=== PATIENT | female | born 1985 | race Asian ===

== ENCOUNTER 2019-10-21 11:41 | Inpatient (IN) ==
[2019-10-21] MEDS ORDERED: OXYTOCIN/DEXTROSE 5%-WATER 30 UNITS/500 ML BAG IV ONE (12:21)
[2019-10-21] MEDS ORDERED: RINGER'S SOLUTION,LACTATED 1,000 ML IV ONE (12:21)
[2019-10-21] MEDS ORDERED: ONDANSETRON 4 MG TAB.RAPDIS PO PRN (12:21)
[2019-10-21] MEDS: DEXTROSE 5%-LACTATED RINGERS 1,000 ML IV PRN ×3 (12:40→16:30)
--- NOTE | 2019-10-21 13:04 | HP ---
Chief Complaint - Chief Complaint Date of Service: 10/21/19 Time of Service: 12:44 Chief Complaint: My water broke History of Present Illness: 33 yo at 39 3/7 weeks presents to L&D complaining of SROM at 1030 this am. Patient has been getting her PNC at [facility] and was in the process of transferring here when her water broke this am. She does not feel her contractions, denies vaginal bleeding, decreased FM, abdominal pain, trauma, N/V/F/C. This complicated by mild anemia. Rh positive Rubella immune GBS negative Medical History (Last Reviewed 10/21/19 @ 12:52 by Michael Christianson DO) Ulcer Review Of Systems (GEN) - Review of Systems Generalized/Overall Review: Present: No Symptoms Reported EENTM: Present: No Symptoms Reported Respiratory: Present: No Symptoms Reported Cardiac: Present: No Symptoms Reported Abdominal: Present: No Symptoms Reported Genitourinary: Present: Other - LOF - clear, 1030am Musculoskeletal: Present: No Symptoms Reported Neurological: Present: No Symptoms Reported Skin: Present: No Symptoms Reported Endocrine: Present: No Symptoms Reported Allergies/Adverse Reactions: Allergies Allergy/AdvReac Type Severity Reaction Status Date / Time No Known Allergies Allergy Unverified 10/21/19 12:07 Home Medications: HOME MEDICATIONS Ferrous Sulfate [Iron] 325 mg PO DAILY 10/21/19 [Last Taken 10/20/19 14:00] Vits96/Iron Fum/Folic [ S] 1 tab PO DAILY 10/21/19 [Last Taken 10/20/19 14:00] Exam - Exam Vital Signs: Vital Signs - Last Taken Temp 36.6 C 10/21/19 12:39 Pulse 91 10/21/19 12:39 Resp 18 10/21/19 12:39 BP 99/59 10/21/19 12:39 Pulse Ox 97 10/21/19 12:39 Constitutional: Present: Alert, Oriented x3, Acute distress ENT Exam: Present: hearing grossly normal Neck: Present: non-tender. Absent: thyromegaly Breasts: Present: Exam deferred Respiratory: Present: lungs clear, no respiratory distress Cardiovascular/Chest: Present: normal peripheral pulses, regular rate, rhythm, no edema Abdomen: Present: soft, no rebound tenderness, other - gravid. Absent: tender /Rectal: Present: Other - 1-2/75/-2, gross ROM with clear fluid Skin Exam: Present: normal color, warm/dry, no cyanosis Lymphatic: Present: no adenopathy Neurologic: Present: alert, normal mood/affect Appearance: Present: appropriate appearance, appropriate insight Eye contact: Present: cooperative, good eye contact Thoughts: Present: normal thought pattern, normal mood /affect Assessment/Plan - Assessment/Plan (1) SROM (spontaneous rupture of membranes) Assessment: Admit to L&D. IV D5LR bolus. NPO until reassuring tracing. Pitocin and Epidural PRN. CBC. Problem: Acute (2) Anemia Problem: Acute Qualifiers: Anemia type: iron deficiency Iron deficiency anemia type: inadequate dietary iron intake Qualified Code(s): D50.8 - Other iron deficiency anemias Non Stress Test - Status NST: 10/21/19 Reason for NST: other - SROM Monitor Mode: External Acceleration: Present Decelerations: None Variability: Minimal - Undetectable to <= 5 bpm Activity: non-reactive - Assessment NST Assessment: other - SROM with non-reactive NST., threatened labor - contractions q 6-7 min Minutes on NST: 40 - Plan NST Plan: Admit to L&D, Other - Since pt hasn't eaten anything this am, will give IV D5LR bolus to see if tracing improves.
[2019-10-21 13:18] LABS: Hematocrit 31.7 % (37.0-47.0); Hemoglobin 10.4 gm/dL (12.5-16.0); Mean Cell Volume 98.1 fl (78-100); Mean Corpuscular Hemoglobin 32.2 pg (27-31); Mean Corpuscular Hgb Conc 32.8 g/dl (32-36); Mean Platelet Volume 9.6 fl (8-12.5); Neutrophil # 4.4 K/mm3 (1.3-6.0); Neutrophil % 74.6 % (42-75.0); Platelet Count 196 K/mm3 (150-450); Red Blood Count 3.23 M/mm3 (4.2-5.4); Red Cell Distribution Width 13.1 % (11.5-14.0); White Blood Count 5.9 K/mm3 (4.0-10.5)
[2019-10-21 14:00] LABS: Cocaine Ur Negative (NEGATIVE); Urine Barbiturate Negative (NEGATIVE); Urine Benzodiazepines Negative (NEGATIVE); Urine Opiates Negative (NEGATIVE); Urine PCP Negative (NEGATIVE); Urine THC Negative (NEGATIVE)
[2019-10-21] MEDS ORDERED: CALCIUM CARBONATE 500 MG TAB.CHEW PO PRN (16:40)
--- NOTE | 2019-10-21 18:44 | PN ---
Progess Note - Interim Date: 10/21/19 Time: 18:39 Narrative: 10/21/19 18:39 Patient becoming more uncomfortable with contractions Vital signs stable. Pitocin at 1 mu/min. FHT: 145 baseline, minimum with periods of moderate variability, good accelerations, no decelerations. Contractions q 2-3 min Cervix: 2/80/-2 at 1700 Impression: Intrauterine at 39-3/7 weeks with spontaneous rupture of membranes at 1030 this a.m. in early labor. Plan: Continue present plan
[2019-10-21] MEDS ORDERED: NALOXONE HCL 1 MG/1 ML SYRG IV PRN (19:39)
[2019-10-21] MEDS ORDERED: ONDANSETRON HCL/PF 2 MG/ML VIAL IV PRN (19:39)
[2019-10-21] MEDS ORDERED: BUPIVACAINE HCL/0.9 % NACL/PF 250 ML EP PRN (19:39)
[2019-10-21] MEDS ORDERED: fentaNYL CITRATE/PF 50 MCG/ML AMPUL IT SCH (19:45)
--- NOTE | 2019-10-21 20:34 | ANES ---
Post Anesthesia Discharge - Transfer of Care Transfer of Care handoff given to nurse: Yes - Anesthesia Post Op Note Anesthesia Post Op Note: Care transferred to OB RN
--- NOTE | 2019-10-21 20:34 | ANES ---
Anesthesia Pre Procedure Eval Vitals/Labs: Last Vital Signs Temp 36.6 C 10/21/19 12:39 Pulse 91 10/21/19 12:39 Resp 18 10/21/19 12:39 BP 99/59 10/21/19 12:39 Pulse Ox 97 10/21/19 12:39 HOME MEDICATIONS Ferrous Sulfate [Iron] 325 mg PO DAILY 10/21/19 [Last Taken 10/20/19 14:00] Vits96/Iron Fum/Folic [ S] 1 tab PO DAILY 10/21/19 [Last Taken 10/20/19 14:00] Allergies/Adverse Reactions: Allergies Allergy/AdvReac Type Severity Reaction Status Date / Time No Known Allergies Allergy Unverified 10/21/19 12:07 - Planned Procedure Planned Procedure: WATER BROKE Medication List Reviewed:: Yes Allergies Verified: Yes Medical History (Last Reviewed 10/21/19 @ 20:33 by Jorge Katz CRNA) Ulcer Surgical History (Last Reviewed 10/21/19 @ 20:33 by Jorge Katz CRNA) No pertinent past surgical history - Family Anesthesia History Family History:: no untoward family reactions to anesthesia - Airway/Neck/Teeth Within Normal Limits:: Yes Teeth Condition: intact Neck Exam: full range of motion Mallampatti Score: 1 Thyromental (T-M) distance: > 6 cm Mandibulo Hyoid distance: > 3 cm - Respiratory Respiratory Physical: lungs clear Smoking Status: Never smoker Sleep Apnea currently treated: No Sleep Apnea by current assessment: No - Cardiovascular Tolerate Activity: Good Heart Sounds: S1 & S2, Regular - Gastrointestinal NPO since: 1300 - Anesthesia Assessment and Plan ASA Class: PS, II, E Anesthesia Type Plan: Epidural Planned difficult intubation/equipment available: No
--- NOTE | 2019-10-21 20:35 | ANES ---
Post Anesthesia Assessment - Vital Signs Vitals: Last Vital Signs Temp 36.6 C 10/21/19 12:39 Pulse 91 10/21/19 12:39 Resp 18 10/21/19 12:39 BP 99/59 10/21/19 12:39 Pulse Ox 97 10/21/19 12:39 Airway Patency: Normal - Mental Status Level Of Consciousness: Awake - Pain Level Pain Score: 1 - N/V Assessment Nausea/Vomiting Presence: None Dehydration:: No
--- NOTE | 2019-10-21 20:37 | ANES ---
Anesthesia Procedure Note Procedure Note: ANESTHESIA PROCEDURE NOTE Date of Procedure: 10/21/19 Time of procedure: 2014. Performed by: Tc Katz CRNA Institutional Commodity Analyst: None. Preprocedure diagnosis: Active labor. Post procedure diagnosis: Same. Procedure: Insertion of labor epidural. Indications: The patient is a 33-year-old multigravida female in active labor requesting labor epidural for pain management. Findings: See below. Details of the procedure: The patient was placed in a sitting position. Back was prepped with DuraPrep. Patient was then draped in a sterile fashion. Lidocaine 1% was infiltrated to the skin and subcutaneous tissues at the level of the L3 4 interspace. The epidural space was identified using a 18-gauge Tuohy needle with [id number] technique. 20 mcg fentanyl was given intrathecally using a 27 ga. spinal needle. Epidural catheter was inserted without difficulty. Negative test dose was elicited using 5 mL of 1.5% preservative-free lidocaine plus epinephrine 1 200,000. The epidural catheter was then taped and secured in place. EBL: Minimal. Fluids: N/A. Specimen: N/A. Post procedure condition: The patient tolerated the procedure well. No complications were noted. Thank you for this consultation. Ramirez CRNA
--- NOTE | 2019-10-21 23:10 | PN ---
Progess Note - Interim Date: 10/21/19 Time: 22:49 Narrative: 10/21/19 22:49 Patient [comfortable with epidural] Vital signs stable. FHT: 140 baseline, minimum variability but periods of moderate variability with accelerations 10 beats above baseline every 15-20 minutes. Patient had few late decelerations following her epidural which have since resolved. Good acceleration with scalp stimulation. Contractions q 2-4 min Cervix: 2/80/0 Impression: Intrauterine at 39-3/7 weeks [in labor] Plan: Discussed minimum variability with patient earlier today. Explained to her and partner that seeing moderate variablity reassures us the baby is ok. But everything could still be ok even if we don't see it. Explained that some causes of minimal/absent variablitiy are: prexisiting neurologic injury, congenital anomalies, sleep cycle of baby, medications, extreme prematurity, or arrhythmias. Options of c/s vs continued labor discussed. Recommended continuing with labor as long as there are no repetitive late or variable decelerations. They agree.
[2019-10-22] MEDS ORDERED: ceFAZolin SODIUM 1 GM VIAL IV PRN (06:00)
[2019-10-22] MEDS ORDERED: TERBUTALINE SULFATE 1 MG/ML VIAL ONE (06:14)
[2019-10-22] MEDS ORDERED: ceFAZolin SODIUM 1 GM VIAL ONE (06:31)
[2019-10-22] MEDS ORDERED: LIDOCAINE HCL/EPINEPHRINE 20 ML VIAL IJ ONE (06:36)
[2019-10-22] MEDS ORDERED: SODIUM BICARBONATE 1 MEQ/ML SYRG ONE (06:37)
[2019-10-22] MEDS ORDERED: OXYTOCIN 20 UNITS in RINGER'S SOLUTION,LACTATED 1,000 ML IV ONE (06:40)
[2019-10-22] MEDS ORDERED: ONDANSETRON HCL/PF 2 MG/ML VIAL ONE (07:05)
[2019-10-22] MEDS ORDERED: fentaNYL CITRATE/PF 50 MCG/ML AMPUL ONE ×2 (07:05→08:06)
[2019-10-22] MEDS ORDERED: KETOROLAC TROMETHAMINE 30 MG/ML VIAL ONE (08:06)
[2019-10-22] MEDS ORDERED: ONDANSETRON HCL/PF 2 MG/ML VIAL IV PRN (08:07)
[2019-10-22] MEDS ORDERED: SENNOSIDES 8.6 MG TABLET PO PRN (08:07)
[2019-10-22] MEDS ORDERED: GLYCERIN/WITCH HAZEL LEAF 40 APPL BOX TP PRN (08:07)
[2019-10-22] MEDS ORDERED: SIMETHICONE 80 MG TAB.CHEW PO PRN (08:07)
[2019-10-22] MEDS ORDERED: BISACODYL 10 MG SUPP.RECT RC PRN (08:07)
--- NOTE | 2019-10-22 08:33 | ANES ---
Anesthesia Pre Procedure Eval Vitals/Labs: Last Vital Signs Temp 37.1 C 10/22/19 08:20 Pulse 82 10/22/19 08:20 Resp 19 10/22/19 08:20 BP 100/46 10/22/19 08:20 Pulse Ox 96 10/22/19 08:20 HOME MEDICATIONS Ferrous Sulfate [Iron] 325 mg PO DAILY 10/21/19 [Last Taken 10/20/19 14:00] Vits96/Iron Fum/Folic [ S] 1 tab PO DAILY 10/21/19 [Last Taken 10/20/19 14:00] Allergies/Adverse Reactions: Allergies Allergy/AdvReac Type Severity Reaction Status Date / Time No Known Allergies Allergy Unverified 10/21/19 12:07 - Planned Procedure Planned Procedure: Medication List Reviewed:: Yes Allergies Verified: Yes Medical History (Last Reviewed 10/22/19 @ 08:32 by Jorge Katz CRNA) Ulcer Surgical History (Last Reviewed 10/22/19 @ 08:32 by Jorge Katz CRNA) No pertinent past surgical history - Family Anesthesia History Family History:: no untoward family reactions to anesthesia - Airway/Neck/Teeth Within Normal Limits:: Yes Teeth Condition: intact Neck Exam: full range of motion Mallampatti Score: 2 Thyromental (T-M) distance: > 6 cm Mandibulo Hyoid distance: > 3 cm - Respiratory Respiratory Physical: lungs clear Smoking Status: Never smoker Sleep Apnea currently treated: No Sleep Apnea by current assessment: No - Cardiovascular Tolerate Activity: Good Heart Sounds: S1 & S2, Regular - Gastrointestinal NPO since: MN - Anesthesia Assessment and Plan ASA Class: PS, II, E Anesthesia Type Plan: Epidural Planned difficult intubation/equipment available: No
--- NOTE | 2019-10-22 08:33 | ANES ---
Post Anesthesia Assessment - Vital Signs Vitals: Last Vital Signs Temp 37.1 C 10/22/19 08:20 Pulse 82 10/22/19 08:20 Resp 19 10/22/19 08:20 BP 100/46 10/22/19 08:20 Pulse Ox 96 10/22/19 08:20 Airway Patency: Normal - Mental Status Level Of Consciousness: Awake - Pain Level Pain Score: 3 - N/V Assessment Nausea/Vomiting Presence: None Dehydration:: No
--- NOTE | 2019-10-22 08:33 | ANES ---
Post Anesthesia Discharge - Transfer of Care Transfer of Care handoff given to nurse: Yes - Discharge from PACU Discharge from PACU when meets criteria: Yes
--- NOTE | 2019-10-22 08:36 | OR ---
Operative Report - Dictated Report Narrative: Indication: 33-year-old 2 para 0 presents to labor and delivery with spontaneous rupture of membranes at 39-3/7 weeks. Upon admission tracing showed minimum to absent variability with rare acceleration. Over the course of the labor tracing would have episodes of moderate variability and accelerations. However, as labor progressed the patient began having more frequent episodes of late decelerations. With mild infrequent contractions tracing was okay, but as soon as contractions became stronger with/without Pitocin late decelerations reoccurred. For this reason patient underwent section. Patient and partner had been counseled extensively regarding section several times throughout labor and once again prior to beginning the section. Patient had progressed to 8 cm/0 station at the time of section. Status: Emergent called at 0622 downgraded to routine at 0632. Pre Operative Diagnosis: 39 4/7-week intrauterine . intolerance to labor. Prolonged premature rupture of membranes. Post Operative Diagnosis: Same. Short umbilical cord. Right foot cord. Procedure Preformed: Primary Low Transverse Section Surgeon: Jona Christianson DO Grinder Operator Tool: OR Staff Anesthesia: Epidural Estimated Blood Loss: 700 mL Urine Output: 100 mL Fluids Given: 1200 mL of crystalloid Drains: Lizama to gravity Surgical Complications: None Specimens: Placenta to pathology Findings: Male born at 0659 on 10/22/2019 with Apgars 9 and 9, weighing 2955 g in cephalic presentation. Normal uterus, tubes, ovaries. Generalized oozing from the lower uterine segment below incision. Cord gases: Arterial pH7.23, base excess -16.0 Venous pH 7.37, base excess - 1.7 Technique: The patient was taken to the operating room and placed in dorsal supine position with a left lateral tilt. After adequate epidural anesthesia, lizama catheter insertion,SCDs placed, and 2 g of Ancef given preoperatively, the abdominal cavity was entered via a modified Norris-Dickens incision. Two rolled laps were placed in the pericolic gutters on either side of the uterus. The bladder appeared to be high on the uterus coming to approximately mid fundus region. For this reason an incision was made through vesicouterine peritoneum, creating a bladder flap. A transverse incision was made in the lower uterine segment and extended laterally and upwardly with digital traction. Clear fluid was noted upon amniotomy. The infant was delivered easily. The cord was clamped and cut and infant was handed off to awaiting campus director. Cord gases were obtained. The placenta was allowed to deliver spontaneously. The uterus was cleared of clot and debris. Uterine incision was closed with 0 Vicryl using a running stitch. A second imbricating layer was placed. Generalized oozing was noted over the entire lower uterine segment. Attempts at controlling bleeding with cautery was unsuccessful. Therefore Aristastat was placed over the generalized oozing area providing excellent hemostasis. Rolled laps were removed from the abdominal cavitiy. The peritoneum was closed with a running 3- 0 Monocryl. The same suture was used to approximate the rectus and pyramidalis muscles. The fascia was closed with a running 0 Vicryl. The subcutaneous layer was closed with a running 3-0 Monocryl. The same suture was used to approximate the subdermal layer. The skin was closed with a running 4-0 Monocryl and Dermabond. Sponge, lap, needle, and instrument count were correct x 2. Disposition: The patient was transferred to post anesthesia care unit in good condition
[2019-10-22] MEDS: oxyCODONE HCL/ACETAMINOPHEN 1 TAB TABLET PO PRN ×5 (09:40→23:52)
[2019-10-22] MEDS: IBUPROFEN 800 MG TABLET PO PRN ×3 (09:41→23:52)
[2019-10-22] MEDS: DOCUSATE SODIUM 100 MG CAPSULE PO SCH ×2 (15:46→20:12)
[2019-10-22] MEDS: ENOXAPARIN SODIUM 40 MG/0.4 ML SYRG SC SCH (15:48)
[2019-10-23] MEDS: DOCUSATE SODIUM 100 MG CAPSULE PO SCH ×2 (08:36→20:51)
[2019-10-23] MEDS: IBUPROFEN 800 MG TABLET PO PRN ×2 (08:37→17:08)
[2019-10-23] MEDS: oxyCODONE HCL/ACETAMINOPHEN 1 TAB TABLET PO PRN ×2 (08:37→17:08)
--- NOTE | 2019-10-23 12:30 | PN ---
Subjective - Date and Time Seen Date: 10/23/19 Time: 12:29 Objective - Vitals Vitals: Last Vital Signs Temp 36.6 C 10/23/19 11:12 Pulse 94 10/23/19 11:12 Resp 18 10/23/19 11:12 BP 99/51 10/23/19 11:12 Pulse Ox 97 10/23/19 11:12 Patient denies complaints. Tolerating regular diet. Ambulating without difficulty. Pain well controlled. Lochia wnl. Abdomen - soft, appropriately tender Incision -clean, dry, intact uterus - firm, at umbilicus -1 no calf tenderness Impression: Post op day #1 s/p primary section. Baby transferred to [facility] for apneic episodes. Plan: Continue routine post-operative/ care. We will try to discharge patient as soon as safely possible so she can be with her baby. Cauti Physician Documentation - Urinary Catheter Management Urethral (Manuel) Date of Insertion: 10/21/19 Time of Insertion: 21:00 Date of Removal: 10/22/19 Time of Removal: 19:15 Assessment/Plan - Problems/Diagnosis (1) SROM (spontaneous rupture of membranes) Problem: Acute (2) Anemia Problem: Acute Qualifiers: Anemia type: iron deficiency Iron deficiency anemia type: inadequate dietary iron intake Qualified Code(s): D50.8 - Other iron deficiency anemias
[2019-10-23] MEDS: ENOXAPARIN SODIUM 40 MG/0.4 ML SYRG SC SCH (15:30)
[2019-10-24] MEDS: oxyCODONE HCL/ACETAMINOPHEN 1 TAB TABLET PO PRN ×3 (05:02→17:42)
[2019-10-24] MEDS: IBUPROFEN 800 MG TABLET PO PRN ×2 (05:02→13:23)
[2019-10-24 07:36] VITALS: BP 104/59
[2019-10-24] MEDS: DOCUSATE SODIUM 100 MG CAPSULE PO SCH (08:56)
--- NOTE | 2019-10-24 14:50 | PN ---
Subjective - Date and Time Seen Date: 10/24/19 Time: 14:48 Objective - Vitals Vitals: Last Vital Signs Temp 36.5 C 10/24/19 07:30 Pulse 83 10/24/19 07:30 Resp 14 10/24/19 07:30 BP 104/59 10/24/19 07:30 Pulse Ox 99 10/24/19 07:30 Patient denies complaints. Ambulating well. Tolerating regular diet. Pain well controlled. Lochia wnl. Abdomen - soft, appropriately tender Incision -clean, dry, intact uterus - firm, at umbilicus -2 no calf tenderness Impression: Post op day #2 s/p primary section. Prolonged premature rupture of membranes. Baby transferred to [facility] for apneic episodes. Plan: Continue routine post-operative/ care. Discharge instructions given for early discharge since mother would like to be with baby at [facility]. Follow-up in the office in 1 week Cauti Physician Documentation - Urinary Catheter Management Urethral (Manuel) Date of Insertion: 10/21/19 Time of Insertion: 21:00 Date of Removal: 10/22/19 Time of Removal: 19:15 Assessment/Plan - Problems/Diagnosis (1) SROM (spontaneous rupture of membranes) Problem: Acute (2) Anemia Problem: Acute Qualifiers: Anemia type: iron deficiency Iron deficiency anemia type: inadequate dietary iron intake Qualified Code(s): D50.8 - Other iron deficiency anemias
[2019-10-24] MEDS: ENOXAPARIN SODIUM 40 MG/0.4 ML SYRG SC SCH (17:08)
[2019-10-25] MEDS ORDERED: PRENATAL VITS96/IRON FUM/FOLIC 1 TAB TABLET PO SCH (09:00)
[2019-10-25] MEDS ORDERED: FERROUS SULFATE 325 MG TABLET PO SCH (09:00)
== END 2019-10-24 18:00 | disposition home or self-care (01) | DRG 788 ==
LOC: OB 11:41
PROVIDERS: ADMIT Obstetrics & Gynecology; ATTEND Obstetrics & Gynecology
DX: Z37.0 Single live birth; D50.8 Other iron deficiency anemias; O99.02 Anemia complicating childbirth; Z3A.39 39 weeks gestation of pregnancy; O76 Abnormality in fetal heart rate and rhythm complicating labor and delivery
CPT/HCPCS: 36415; 59025; 80307; 85025; 88307; 88888; J2405